=== PATIENT | male | born 1945 | race Caucasian/White ===

== ENCOUNTER 2017-03-16 15:44 | Emergency (ER) | payer MEDICARE ==
--- NOTE | ~2017-03-16 | CR141 ---
[facility] A Service [facility] RADIOLOGY TEXT RESULTS PATIENT: ETIENNE CLEMENS LOCATION: SED : 45 UNIT #: [id number] AGE: [address]: TRAV NETTLES SEX: M ORDER DR: [id number] [place] [id number] E MR#: [id number] Acc #: [id number] NAME: ETIENNE CLEMENS : 1945 SEX: M STUDY DATE/TIME: 03/16/2017 16:37 UNIT: SED ROOM: STUDY DESCRIPTION: CR Hand Min 3 Views Lt Attending Physician: Trav Nettles Ordering Physician: Trav Nettles (Res) Primary Care Physician: Robby Olivera M.D. MEDICAL IMAGING REPORT This report is preliminary unless electronic signature is present. EXAM Left hand HISTORY Left hand pain after falling today. TECHNIQUE Three views of the hand were obtained. FINDINGS There is a small metallic sliver-like foreign body in the fifth digit, along the medial aspect at the base of the distal phalanx, measuring about 2 mm in length. There are mild degenerative changes at the interphalangeal joints and at the first carpometacarpal complex. There is no evidence of fracture, dislocation or subluxation. No acute bony abnormalities are seen. IMPRESSION Small metallic sliver-like foreign body fifth digit, near the DIP joint. Arthritic changes as described above. No acute bony abnormalities. Dictated by... Taz Thakkar M.D. THIS IS AN ELECTRONICALLY VERIFIED REPORT Taz Thakkar M.D. at 03/17/2017 9:35 AM RLF/aubree TD: 03/16/2017 22:28 JOB #: [id number] [facility] A [facility] RADIOLOGY TEXT RESULTS PATIENT: ETIENNE CLEMENS LOCATION: SED : 45 UNIT #: [id number] AGE: [address]: TRAV NETTLES SEX: M ORDER DR: MEDICAL IMAGING REPORT Page 1 of 1
--- NOTE | ~2017-03-16 | CR93 ---
[facility] A Service of [facility] RADIOLOGY TEXT RESULTS PATIENT: ETIENNE CLEMENS LOCATION: SED : 45 UNIT #: [id number] AGE: [address]: TRAV NETTLES SEX: M ORDER DR: [id number] [place] [address] [id number] E MR#: [id number] Acc #: [id number] NAME: ETIENNE CLEMENS : 1945 SEX: M STUDY DATE/TIME: 03/16/2017 16:37 UNIT: SED ROOM: STUDY DESCRIPTION: CR Elbow Min 3 Views Lt Attending Physician: Trav Nettles Ordering Physician: Trav Nettles (Res) Primary Care Physician: Robby Olivera M.D. MEDICAL IMAGING REPORT This report is preliminary unless electronic signature is present. EXAM Left elbow HISTORY Elbow pain after falling today. TECHNIQUE Three views of the elbow were obtained. FINDINGS AP and lateral examination of the elbow shows satisfactory articulation of the humerus with the proximal radius and ulna. There is no identifiable fracture, dislocation, joint effusion, or radiopaque foreign body in the soft tissues. IMPRESSION Normal elbow. Dictated by... Taz Thakkar M.D. THIS IS AN ELECTRONICALLY VERIFIED REPORT Taz Thakkar M.D. at 03/17/2017 9:35 AM HERBIE/aubree TD: 03/16/2017 22:22 JOB #: [id number] MEDICAL IMAGING REPORT Page 1 of 1
[~2017-03-16 15:44] MED LIST: ALBUTEROL17 GM INH; ASPIRIN81 M1 PO; BUMEX PO; BUMEX1 MG PO; CARAFATE1 G PO; CELEXA20 MG PO; CIPRO250 MG PO; DESYREL50 M1 PO; FEOSOL PO; FERRO-TIME325 MG PO; FLAGYL PO; HYDROCODON-ACE1 EAC1 PO; K-DUR20 ME1 PO; KLOR-CON PO; LIPITOR80 MG PO; LORAZEPAM1 MG PO; LORTAB 7.5-5001 TAB PO; METOPROLOL TART25 MG PO; NEXIUM PO; PLAVIX PO; PROBIOTIC1 EAC1 PO; PROTONIX PO; SENNA LAXATIVE1 TAB PO; VIIBRYD40 MG PO; ZANAFLEX PO; ZANAFLEX4 M1 PO
[2017-03-16] MEDS ORDERED: PLAVIX (15:51)
== END 2017-03-16 18:07 | disposition home or self-care (01) ==
LOC: SED 15:44
DX: S61.412A Laceration without foreign body of left hand, initial encounter (principal); S50.02XA Contusion of left elbow, initial encounter; I10 Essential (primary) hypertension; F41.9 Anxiety disorder, unspecified; F32.9 Major depressive disorder, single episode, unspecified; F17.210 Nicotine dependence, cigarettes, uncomplicated; Z86.73 Personal history of transient ischemic attack (TIA), and cerebral infarction without residual deficits; Z88.0 Allergy status to penicillin; Z88.7 Allergy status to serum and vaccine; W06.XXXA Fall from bed, initial encounter; Y92.009 Unspecified place in unspecified non-institutional (private) residence as the place of occurrence of the external cause
CPT/HCPCS: 12001; 73080; 73130; 99283

== ENCOUNTER 2017-04-07 06:46 | Emergency (ER) | payer MEDICARE, BC ==
[~2017-04-07 06:46] MED LIST changes: +PLAVIX
[2017-04-07] MEDS ORDERED: BUPROPION HCL150 M3 PO (07:22)
[2017-04-07] MEDS ORDERED: AMLODIPINE BESY10 MG PO (07:22)
[2017-04-07] MEDS ORDERED: LOPRESSOR PO (07:23)
[2017-04-07] MEDS ORDERED: ISORDIL PO (07:23)
[2017-04-07] MEDS ORDERED: REMERON PO (07:24)
[2017-04-07] MEDS ORDERED: CLOPIDOGREL75 MG PO (07:25)
[2017-04-07] MEDS ORDERED: LAXATIVE8.6 M1 PO (07:25)
[2017-04-07] MEDS ORDERED: PROTONIX PO (07:25)
[2017-04-07] MEDS ORDERED: ZESTRIL10 M2 PO (07:25)
[2017-04-07] MEDS ORDERED: IRON (07:26)
[2017-04-07] MEDS ORDERED: AVODART0.5 MG PO (07:26)
[2017-04-07] MEDS ORDERED: FLOMAX0.4 M1 PO (07:26)
[2017-04-07] MEDS ORDERED: CRESTOR PO (07:27)
[2017-04-07] MEDS ORDERED: NORCO 7.5-3251 EACH PO (07:27)
[2017-04-07] MEDS ORDERED: ZANAFLEX PO (07:28)
== END 2017-04-07 08:37 | disposition home or self-care (01) ==
LOC: SED 06:46
DX: H61.21 Impacted cerumen, right ear (principal); I10 Essential (primary) hypertension; J44.9 Chronic obstructive pulmonary disease, unspecified; I25.10 Atherosclerotic heart disease of native coronary artery without angina pectoris; F17.200 Nicotine dependence, unspecified, uncomplicated; Z79.899 Other long term (current) drug therapy; Z88.0 Allergy status to penicillin; Z88.7 Allergy status to serum and vaccine
CPT/HCPCS: 99282